=== PATIENT | female | born 1965 | race Caucasian/White ===

== ENCOUNTER 2021-08-27 00:14 | Emergency (ER) | payer OTHER ==
[2021-08-27] MEDS ORDERED: PREDNISONE 20MG20 MG PO (03:03)
[2021-08-27] MEDS ORDERED: EPINEPHRIN0.3 MG/0.3 IM (03:08)
== END 2021-08-27 03:15 | disposition home or self-care (01) ==
LOC: FER 00:14
DX: T78.1XXA Other adverse food reactions, not elsewhere classified, initial encounter (principal); J39.2 Other diseases of pharynx; Z91.011 Allergy to milk products
CPT/HCPCS: 94640; 96372; J0171; J1200; J2930